=== PATIENT | male | born 1960 | race Caucasian/White ===

== ENCOUNTER 2017-02-24 19:40 | Inpatient (IN) | payer OTHER ==
[~2017-02-24] VITALS: Ht 167.6 cm; Wt 70.8 kg
[2017-02-24 20:48] LABS: BASOPHIL % 0.1 % (0-2); PLATELET COUNT 188 x10^3mcL (130-400); RED CELL DISTRIBUTION WIDTH 12.8 % (11.5-14.5)
[2017-02-24 21:06] LABS: CALCIUM 8.9 mg/dL (8.5-10.1); CARBON DIOXIDE 23.9 mmol/L (21-32); CHLORIDE SERUM 104 mmol/L (98-107); GFR1 > 60 mL/min; GLUCOSE SERUM 112 mg/dL (74-106); POTASSIUM SERUM 3.6 mmol/L (3.5-5.1); SODIUM SERUM 141 mmol/L (136-145)
[2017-02-24 21:10] LABS: ALBUMIN 3.7 g/dL (3.4-5.0); ALKALINE PHOSPHATASE 78 U/L (46-116); ALT/SGPT 23 U/L (16-63); AMYLASE 48 U/L (25-115); AST/SGOT 19 U/L (15-37); BILIRUBIN TOTAL 0.4 mg/dL (0.20-1.00); LIPASE 101 IU/L (73-393); TOTAL PROTEIN, SERUM 7.4 g/dL (6.4-8.2)
[2017-02-24 21:34] LABS: microscopic required? NO
[2017-02-24 21:45] LABS: urine erythrocyte NEGATIVE (NEGATIVE)
[2017-02-24] MEDS ORDERED: ESCITALOPRAM20 M1 PO (23:22)
[2017-02-24] MEDS ORDERED: SYNTHROID0.075 MG PO (23:22)
[2017-02-24] MEDS ORDERED: BENADRYL ALLERG25 M1 PO (23:22)
[2017-02-24] MEDS ORDERED: RANITIDINE HYD150 M2 PO (23:22)
[2017-02-24] MEDS ORDERED: LORAZEPAM0.5 MG PO (23:30)
[2017-02-25 00:31] VITALS: BP 121/67
[2017-02-25 00:33] VITALS: Ht 167.6 cm; Wt 70.8 kg
[2017-02-25 00:34] LABS: CHOLESTEROL/HDL RATIO 5.1
[2017-02-25 00:53] LABS: FREE T4 0.97 ng/dL (0.76-1.46); FREE THYROXINE INDEX 3.1 ug/dL (1.4-4.5); T4(THYROXINE) 9.3 ug/dL (4.7-13.3)
[2017-02-25 05:45] VITALS: BP 110/60
[2017-02-25 10:31] VITALS: BP 107/66
[2017-02-25 10:31] LABS: T3 TOTAL 1.18 ng/mL
[2017-02-25 14:21] VITALS: BP 114/64
[2017-02-25 18:03] VITALS: BP 101/58
[2017-02-25 20:31] VITALS: BP 124/77
[2017-02-26 05:36] VITALS: BP 111/64
[2017-02-26 06:31] LABS: CALCIUM 7.9 mg/dL (8.5-10.1); CARBON DIOXIDE 23.6 mmol/L (21-32); CHLORIDE SERUM 105 mmol/L (98-107); CREATININE SERUM 0.8 mg/dL (0.7-1.3); GFR1 > 60 mL/min; GLUCOSE SERUM 82 mg/dL (74-106); MAGNESIUM 1.8 mg/dL (1.8-2.4); PHOSPHOROUS 2.6 mg/dL (2.5-4.9); POTASSIUM SERUM 3.7 mmol/L (3.5-5.1); SODIUM SERUM 139 mmol/L (136-145)
[2017-02-26 06:56] LABS: BASOPHIL % 0.3 % (0-2); PLATELET COUNT 154 x10^3mcL (130-400); RED CELL DISTRIBUTION WIDTH 12.9 % (11.5-14.5)
[2017-02-26 07:40] VITALS: BP 109/56
[2017-02-26 18:21] VITALS: BP 110/60
[2017-02-26 21:12] VITALS: BP 114/68
[2017-02-27 06:07] LABS: BASOPHIL % 0.4 % (0-2); PLATELET COUNT 143 x10^3mcL (130-400); RED CELL DISTRIBUTION WIDTH 12.4 % (11.5-14.5)
[2017-02-27 06:16] VITALS: BP 116/69
[2017-02-27 06:16] LABS: CHLORIDE SERUM 108 mmol/L (98-107); CREATININE SERUM 0.7 mg/dL (0.7-1.3); GFR1 > 60 mL/min; GLUCOSE SERUM 86 mg/dL (74-106); MAGNESIUM 1.8 mg/dL (1.8-2.4); PHOSPHOROUS 2.5 mg/dL (2.5-4.9); POTASSIUM SERUM 3.5 mmol/L (3.5-5.1); SODIUM SERUM 141 mmol/L (136-145)
[2017-02-27 09:00] VITALS: BP 96/49
[2017-02-27 13:43] VITALS: BP 108/62
[2017-02-27] MEDS ORDERED: FLA250 PO (14:46)
[2017-02-27] MEDS ORDERED: CIPRO500 MG PO (14:46)
[2017-02-27] MEDS ORDERED: LAC PO (14:49)
[2017-02-27 14:57] VITALS: BP 108/62
== END 2017-02-27 15:27 | disposition home or self-care (01) | DRG 392 ==
LOC: ED 19:40 → MU 23:10 → DU 23:10 → MU 02-26 18:20
PROVIDERS: Emergency Medicine; Family Medicine; Internal Medicine; ADMIT Family Medicine
PROC: 0DB68ZX Excision of Stomach, Via Natural or Artificial Opening Endoscopic, Diagnostic (ICD-10-PCS; principal; 2017-02-27 08:30)
DX: K57.12 Diverticulitis of small intestine without perforation or abscess without bleeding (principal); E44.0 Moderate protein-calorie malnutrition; I16.0 Hypertensive urgency; K20.8 Other esophagitis; E03.9 Hypothyroidism, unspecified; F41.0 Panic disorder [episodic paroxysmal anxiety]; F32.9 Major depressive disorder, single episode, unspecified; E78.5 Hyperlipidemia, unspecified; K64.8 Other hemorrhoids; Z68.25 Body mass index [BMI] 25.0-25.9, adult
CPT/HCPCS: 43235; 80307; 83880; 84439; J1170; J1200; J1610; J2250; J2310; J3010; J3490; J7030; Q0092; Q9967